=== PATIENT | male | born 1960 | race Caucasian/White ===

== ENCOUNTER 2019-04-03 13:31 | Inpatient (IN) | payer BC, OTHER ==
[2019-04-03] VITALS (7 sets, daily range): BP systolic 96–145; BP diastolic 75–98
[~2019-04-03] VITALS: Ht 193 cm; Wt 80.1 kg
[2019-04-03 13:50] LABS: BASOPHILS % (AUTO) 0.5 % (0-1); EOSINOPHILS # (AUTO) 0.1 X10'3 (0-0.9); HEMATOCRIT 43.8 % (42.0-52.0); HEMOGLOBIN 14.7 g/dl (14.0-17.9); LYMPHOCYTES # (AUTO) 1.5 X10'3 (1.1-4.8); LYMPHOCYTES % (AUTO) 19.7 % (21-51); MEAN CORPUSCULAR HEMOGLOBIN 30.6 PG (27.0-31.0); MEAN CORPUSCULAR HGB CONC 33.6 g/dL (33.0-36.5); MEAN CORPUSCULAR VOLUME 91.2 FL (78-98); MONOCYTES # (AUTO) 0.5 X10'3 (0-0.9); MONOCYTES % (AUTO) 6.6 % (2-12); NEUTROPHILS # (AUTO) 5.5 X10'3 (1.8-7.7); NEUTROPHILS % (AUTO) 72.2 % (42-75); PLATELET COUNT 236 X10'3 (140-440); RED CELL DISTRIBUTION WIDTH 13.6 % (11.5-14.5); WHITE BLOOD COUNT 7.7 X10'3 (4.5-11.0)
[2019-04-03 13:58] LABS: PARTIAL THROMBOPLASTIN TIME 25 SECONDS (22-32)
[2019-04-03 14:04] LABS: ALANINE AMINOTRANSFERASE 96 U/L (12-78); ALBUMIN 3.4 G/DL (3.4-5.0); ALBUMIN/GLOBULIN RATIO 0.9 (1.1-1.5); ALKALINE PHOSPHATASE 92 IU/L (46-116); ANION GAP 11 (8-16); ASPARTATE AMINO TRANSFERASE 46 U/L (10-37); BILIRUBIN,TOTAL 0.9 MG/DL (0.1-1.0); BLOOD UREA NITROGEN 20 MG/DL (7-18); BUN/CREATININE RATIO 19.8 (5.4-32.0); CALCIUM 8.6 MG/DL (8.5-10.1); CHLORIDE 105 MMOL/L (99-107); CREATININE 1.01 MG/DL (0.60-1.10); GLUCOSE 118 MG/DL (70-104); POTASSIUM 4.8 MMOL/L (3.5-5.1); SODIUM 141 MMOL/L (135-145); TOTAL PROTEIN 7.4 G/DL (6.4-8.2); eGFR 75 ML/MIN
[2019-04-03] MEDS ORDERED: diltiazem 5mg/ml 5ml inj. IV ONE ×2 (14:05→14:35)
[2019-04-03 14:16] LABS: D-DIMER 2.52 MG/L FEU (0-0.50)
[2019-04-03] MEDS ORDERED: diltiazem-NS 100mg/100ml 100 ML IV SCH ×2 (14:50→15:50)
[2019-04-03] MEDS ORDERED: iohexol 350MG/ML 100ml bottle IV ONE (15:19)
[2019-04-03] MEDS ORDERED: HYDROcodone/acetaminophen 10/325mg tab PO PRN (16:20)
[2019-04-03] MEDS ORDERED: HYDROcodone/acetaminophen 5mg/325mg tablet PO PRN (16:20)
[2019-04-03] MEDS ORDERED: ondansetron/PF 4mg/2ml inj IV PRN (16:20)
[2019-04-03] MEDS ORDERED: morphine 2 MG/ML inj. syringe IV PRN ×2 (16:20)
[2019-04-03] MEDS ORDERED: acetaminophen 325mg tablet PO PRN (16:20)
[2019-04-03] MEDS ORDERED: magnesium hydroxide 30ml (MOM) UD suspension PO PRN (16:20)
[2019-04-03] MEDS ORDERED: mag hydrox/Alum hydrox/simeth 30ml oral suspension PO PRN (16:20)
--- NOTE | 2019-04-03 16:55 | NUR ---
Received report from ROM Lopez. Awaiting patient arrival to PCU 3021.
[2019-04-03] MEDS ORDERED: SPIR25TA5 PO (17:41)
[2019-04-03] MEDS ORDERED: FURO40TA4 PO (17:41)
--- NOTE | 2019-04-03 17:55 | NUR ---
Patient arrived to PCU 3021. Ambulated to hospital bed from [facility] with minimal assistance. Patient oriented to room and to call light. Cardizem gtt @ 5 mL/hour. Vital signs: T: 97.5, HR 123, RR 22, O2 96% on room air, BP 122/98. Pain 2/10. All immediate needs met at this time. Will continue to monitor.
[2019-04-03] MEDS ORDERED: digoxin 250mcg/ml 2ml ampule IV ONE (18:40)
--- NOTE | 2019-04-03 18:49 | NUR ---
Patient in room PCU 3021. I have received report from Nakia CUETO and had the opportunity to ask questions and assume patient care.
--- NOTE | 2019-04-03 18:49 | NUR ---
Problems reprioritized. Patient report given, questions answered & plan of care reviewed with Deanne CUETO. Patient stable at transfer of care.
--- NOTE | 2019-04-03 19:40 | NUR ---
Patient received 500mcg IV push Digoxin and Cardizem gtt was stopped at this time per Dr. Bosch. HR is still high in the 130's-140's but MD did not want his blood pressure to drop too low. Although blood pressure is stable at this time. Will continue to monitor.
[2019-04-03] MEDS: furosemide 20 MG/2 ML vial IV SCH (20:27)
[2019-04-04] VITALS (18 sets, daily range): BP systolic 89–137; BP diastolic 60–99
[2019-04-04 01:39] LABS: BASOPHILS # (AUTO) 0.1 X10'3 (0-0.2); BASOPHILS % (AUTO) 0.8 % (0-1); EOSINOPHILS # (AUTO) 0.1 X10'3 (0-0.9); EOSINOPHILS % (AUTO) 1.4 % (0-6); HEMATOCRIT 41.5 % (42.0-52.0); HEMOGLOBIN 13.8 g/dl (14.0-17.9); LYMPHOCYTES # (AUTO) 1.7 X10'3 (1.1-4.8); LYMPHOCYTES % (AUTO) 22.6 % (21-51); MEAN CORPUSCULAR HEMOGLOBIN 30.1 PG (27.0-31.0); MEAN CORPUSCULAR HGB CONC 33.4 g/dL (33.0-36.5); MEAN CORPUSCULAR VOLUME 90.1 FL (78-98); MEAN PLATELET VOLUME 7.6 FL (7.4-10.4); MONOCYTES # (AUTO) 0.6 X10'3 (0-0.9); MONOCYTES % (AUTO) 7.7 % (2-12); NEUTROPHILS # (AUTO) 5.1 X10'3 (1.8-7.7); NEUTROPHILS % (AUTO) 67.5 % (42-75); PLATELET COUNT 204 X10'3 (140-440); RED CELL DISTRIBUTION WIDTH 13.4 % (11.5-14.5); WHITE BLOOD COUNT 7.5 X10'3 (4.5-11.0)
[2019-04-04 01:58] LABS: ALBUMIN 2.9 G/DL (3.4-5.0); ANION GAP 10 (8-16); BLOOD UREA NITROGEN 17 MG/DL (7-18); BUN/CREATININE RATIO 21.5 (5.4-32.0); CALCIUM 8.1 MG/DL (8.5-10.1); CHLORIDE 106 MMOL/L (99-107); CREATININE 0.79 MG/DL (0.60-1.10); GLUCOSE 98 MG/DL (70-104); POTASSIUM 3.7 MMOL/L (3.5-5.1); SODIUM 140 MMOL/L (135-145); TOTAL CARBON DIOXIDE 24.1 MMOL/L (24-32); eGFR > 90 ML/MIN
--- NOTE | 2019-04-04 04:47 | NUR ---
Patient's up to use the bathroom and HR back up into the 140's-150's, still A-fib. It stayed up once he got back into bed so Dr. Blair notified. Received order to start patient back on the Cardizem drip at 2.5mg/hour. BP currently 114/92. Will continue to monitor.
[2019-04-04] MEDS: diltiazem-NS 100mg/100ml 100 ML IV SCH (05:14)
--- NOTE | 2019-04-04 06:20 | NUR ---
Patient in room PCU 3021. I have received report from Deanne CUETO and had the opportunity to ask questions and assume patient care.
--- NOTE | 2019-04-04 06:33 | NUR ---
Problems reprioritized. Patient report given, questions answered & plan of care reviewed with Casey CUETO and Yvonne CUETO.
--- NOTE | 2019-04-04 06:51 | NUR ---
Patient in room PCU 3021. I have received report from Deanne and had the opportunity to ask questions and assume patient care.
[2019-04-04] MEDS: furosemide 20 MG/2 ML vial IV SCH ×2 (07:47→20:58)
[2019-04-04 17:28] LABS: MAGNESIUM 1.9 MG/DL (1.5-2.4)
[2019-04-04 17:29] LABS: CHOL/HDL RATIO 3.7 (0.00-4.99); CHOLESTEROL 96 MG/DL (0-200); HDL CHOLESTEROL 26 MG/DL (35-60); LDL CHOLESTEROL 68 MG/DL (50-100); TRIGLYCERIDES 44 MG/DL (20-135)
--- NOTE | 2019-04-04 18:10 | NUR ---
Problems reprioritized. Patient report given, questions answered & plan of care reviewed with Daisy.
--- NOTE | 2019-04-04 18:20 | NUR ---
Problems reprioritized. Patient report given, questions answered & plan of care reviewed with Demi CUETO.
--- NOTE | 2019-04-04 18:37 | NUR ---
I have reviewed Radha CUETO, orientee, charting and I agree with it.
--- NOTE | 2019-04-04 18:43 | NUR ---
Patient in room PCU 3021. I have received report from ROM Russell and Casey RN and had the opportunity to ask questions and assume patient care. Patient awake for beside report and on room air. Cardizem drip infusing at 2.5 mL/hr per provider order. Stable at this time. Will continue to monitor closely.
[2019-04-04] MEDS: carVEDilol 3.125mg tablet PO SCH (20:58)
[2019-04-05] VITALS (13 sets, daily range): BP systolic 93–115; BP diastolic 61–96
--- NOTE | 2019-04-05 00:40 | NUR ---
Patients heart rate sustained in 130's. Dr. Blair notified. No new orders at this time.
[2019-04-05 05:52] LABS: BASOPHILS % (AUTO) 0.5 % (0-1); EOSINOPHILS # (AUTO) 0.2 X10'3 (0-0.9); EOSINOPHILS % (AUTO) 2.5 % (0-6); HEMATOCRIT 42.2 % (42.0-52.0); HEMOGLOBIN 14.4 g/dl (14.0-17.9); LYMPHOCYTES # (AUTO) 1.9 X10'3 (1.1-4.8); LYMPHOCYTES % (AUTO) 27.2 % (21-51); MEAN CORPUSCULAR HEMOGLOBIN 30.3 PG (27.0-31.0); MEAN PLATELET VOLUME 7.7 FL (7.4-10.4); MONOCYTES # (AUTO) 0.5 X10'3 (0-0.9); MONOCYTES % (AUTO) 7.7 % (2-12); NEUTROPHILS # (AUTO) 4.2 X10'3 (1.8-7.7); NEUTROPHILS % (AUTO) 62.1 % (42-75); PLATELET COUNT 221 X10'3 (140-440); RED BLOOD COUNT 4.74 X10'6 (4.70-6.10); WHITE BLOOD COUNT 6.8 X10'3 (4.5-11.0)
[2019-04-05 06:14] LABS: ALBUMIN 2.7 G/DL (3.4-5.0); ANION GAP 10 (8-16); BLOOD UREA NITROGEN 17 MG/DL (7-18); BUN/CREATININE RATIO 23.3 (5.4-32.0); CALCIUM 7.9 MG/DL (8.5-10.1); CHLORIDE 106 MMOL/L (99-107); CREATININE 0.73 MG/DL (0.60-1.10); GLUCOSE 86 MG/DL (70-104); SODIUM 139 MMOL/L (135-145); TOTAL CARBON DIOXIDE 22.6 MMOL/L (24-32); eGFR > 90 ML/MIN
[2019-04-05 06:15] LABS: POTASSIUM 4.3 MMOL/L (3.5-5.1)
--- NOTE | 2019-04-05 06:32 | NUR ---
Problems reprioritized. Patient report given, questions answered & plan of care reviewed with ROM Epperson and ROM Cabrera.
[2019-04-05] MEDS: spironolactone 25 MG tablet PO SCH (07:14)
[2019-04-05] MEDS: carVEDilol 3.125mg tablet PO SCH ×2 (07:15→20:11)
[2019-04-05] MEDS: lisinopril 10 MG tablet PO SCH (07:15)
[2019-04-05] MEDS: furosemide 20 MG/2 ML vial IV SCH ×2 (07:15→20:22)
[2019-04-05] MEDS: diltiazem-NS 100mg/100ml 100 ML IV SCH (07:15)
[2019-04-05] MEDS ORDERED: carVEDilol 3.125mg tablet PO ONE (08:55)
[2019-04-05] MEDS: aspirin 81mg tablet.DR PO SCH (09:05)
--- NOTE | 2019-04-05 18:00 | NUR ---
Patient in room PCU 3021. I have received report from ROM Crook and had the opportunity to ask questions and assume patient care.
--- NOTE | 2019-04-05 18:54 | NUR ---
Problems reprioritized. Patient report given, questions answered & plan of care reviewed with Zenobia CUETO.
[2019-04-05] MEDS ORDERED: digoxin 250mcg/ml 2ml ampule IV ONE (19:40)
[2019-04-05] MEDS: digoxin 125mcg (0.125mg) tablet PO SCH (20:13)
[2019-04-06] VITALS (7 sets, daily range): BP systolic 103–122; BP diastolic 72–90
[2019-04-06] MEDS: digoxin 125mcg (0.125mg) tablet PO SCH ×2 (03:10→08:49)
[2019-04-06 05:21] LABS: BASOPHILS # (AUTO) 0.1 X10'3 (0-0.2); BASOPHILS % (AUTO) 0.7 % (0-1); EOSINOPHILS # (AUTO) 0.2 X10'3 (0-0.9); EOSINOPHILS % (AUTO) 2.5 % (0-6); HEMATOCRIT 43.7 % (42.0-52.0); HEMOGLOBIN 14.8 g/dl (14.0-17.9); LYMPHOCYTES # (AUTO) 1.6 X10'3 (1.1-4.8); LYMPHOCYTES % (AUTO) 18.5 % (21-51); MEAN CORPUSCULAR HEMOGLOBIN 30.1 PG (27.0-31.0); MEAN CORPUSCULAR HGB CONC 33.8 g/dL (33.0-36.5); MEAN CORPUSCULAR VOLUME 89.1 FL (78-98); MEAN PLATELET VOLUME 7.4 FL (7.4-10.4); MONOCYTES # (AUTO) 0.5 X10'3 (0-0.9); NEUTROPHILS # (AUTO) 6.2 X10'3 (1.8-7.7); NEUTROPHILS % (AUTO) 72.3 % (42-75); PLATELET COUNT 253 X10'3 (140-440); RED CELL DISTRIBUTION WIDTH 13.2 % (11.5-14.5); WHITE BLOOD COUNT 8.5 X10'3 (4.5-11.0)
[2019-04-06 05:40] LABS: ALBUMIN 2.8 G/DL (3.4-5.0); ANION GAP 7 (8-16); BLOOD UREA NITROGEN 16 MG/DL (7-18); BUN/CREATININE RATIO 18.6 (5.4-32.0); CALCIUM 9.2 MG/DL (8.5-10.1); CHLORIDE 105 MMOL/L (99-107); CREATININE 0.86 MG/DL (0.60-1.10); GLUCOSE 92 MG/DL (70-104); POTASSIUM 4.4 MMOL/L (3.5-5.1); SODIUM 140 MMOL/L (135-145); TOTAL CARBON DIOXIDE 28.4 MMOL/L (24-32); eGFR > 90 ML/MIN
--- NOTE | 2019-04-06 06:00 | NUR ---
Preceptee documentation: I have reviewed and agree with all interventions, assessments performed and documented by ROM Lundberg.
--- NOTE | 2019-04-06 06:11 | NUR ---
Problems reprioritized. Patient report given, questions answered & plan of care reviewed with ROM Crook.
[2019-04-06] MEDS: spironolactone 25 MG tablet PO SCH (08:48)
[2019-04-06] MEDS: furosemide 20 MG/2 ML vial IV SCH (08:48)
[2019-04-06] MEDS: aspirin 81mg tablet.DR PO SCH (08:48)
[2019-04-06] MEDS: lisinopril 10 MG tablet PO SCH (08:49)
[2019-04-06] MEDS: carVEDilol 3.125mg tablet PO SCH (08:50)
--- NOTE | 2019-04-06 10:04 | NUR ---
Received orders from Dr. Soto to decrease diltiazam to 1mls/hr
[2019-04-06] MEDS ORDERED: diltiazem-NS 100mg/100ml 100 ML IV SCH (10:05)
[2019-04-06] MEDS ORDERED: FURO-150 PO (10:33)
[2019-04-06] MEDS ORDERED: ASPI-1071 PO (10:33)
[2019-04-06] MEDS ORDERED: DIGO125T PO (10:33)
[2019-04-06] MEDS ORDERED: COR3.125T PO (10:33)
[2019-04-06] MEDS ORDERED: LISI10TA4 PO (10:33)
--- NOTE | 2019-04-06 11:18 | NUR ---
PAGER ID: [phone] MESSAGE: [phone] Howie Lemus: Update on VS BP 106/54, HR 102 tolerating the titration well, is it ok to stop cardizem drip? thanks germain
--- NOTE | 2019-04-06 13:22 | NUR ---
Pt is stable for discharge per md orders, discharge instructions reviewed w/ pt and daughter, all questions answered, new medication prescriptions called in to [facility] per pt request, Mobile monitor 2 returned, PIV dc'ed and clean dry dressing in place, pt wheeled down to lobby with hospital staff, pt discharges at 1310 w/ daughter in private vehicle, all needs belongings w/ pt at time of discharge.
== END 2019-04-06 13:15 | disposition home or self-care (01) | DRG 308 ==
LOC: ER 13:31 → ED HOLD 17:30 → PCU 3S 17:50
PROVIDERS: ADMIT Internal Medicine; ATTEND Family Medicine
PROC: B32T1ZZ Computerized Tomography (CT Scan) of Left Pulmonary Artery using Low Osmolar Contrast (ICD-10-PCS; principal; 2019-04-03)
PROC: B3201ZZ Computerized Tomography (CT Scan) of Thoracic Aorta using Low Osmolar Contrast (ICD-10-PCS; 2019-04-03)
PROC: B32S1ZZ Computerized Tomography (CT Scan) of Right Pulmonary Artery using Low Osmolar Contrast (ICD-10-PCS; 2019-04-03)
DX: I48.0 Paroxysmal atrial fibrillation (principal); I50.33 Acute on chronic diastolic (congestive) heart failure; I11.0 Hypertensive heart disease with heart failure; R00.0 Tachycardia, unspecified; Z79.899 Other long term (current) drug therapy
CPT/HCPCS: 36415; 71045; 71275; 80048; 80053; 80061; 80162; 83735; 83880; 84100; 84439; 84443; 84484; 85025; 85379; 85610; 85730; 87081; 93005; 93306; 96365; 96376; 99291; G0378; J1160; J1940; J3490; Q9967

== ENCOUNTER 2022-09-13 15:43 | Observation (INO) | payer BC, OTHER ==
[~2022-09-13] VITALS: Ht 180.3 cm; Wt 81.8 kg
[~2022-09-13 15:43] MED LIST: ASPI-1071 PO; COR3.125T PO; LISI10TA27 PO; SPIR25TA5 PO
[2022-09-13 16:10] LABS: BASOPHILS % (AUTO) 0.5 % (0-1); EOSINOPHILS # (AUTO) 0.3 X10'3 (0-0.9); EOSINOPHILS % (AUTO) 3.2 % (0-6); HEMATOCRIT 47.3 % (42.0-52.0); HEMOGLOBIN 15.5 g/dl (14.0-17.9); LYMPHOCYTES # (AUTO) 1.7 X10'3 (1.1-4.8); LYMPHOCYTES % (AUTO) 18.6 % (21-51); MEAN CORPUSCULAR HGB CONC 32.7 g/dL (33.0-36.5); MEAN PLATELET VOLUME 7.3 FL (7.4-10.4); MONOCYTES # (AUTO) 0.6 X10'3 (0-0.9); MONOCYTES % (AUTO) 6.9 % (2-12); NEUTROPHILS # (AUTO) 6.4 X10'3 (1.8-7.7); NEUTROPHILS % (AUTO) 70.8 % (42-75); PLATELET COUNT 198 X10'3 (140-440); RED BLOOD COUNT 5.14 X10'6 (4.70-6.10); RED CELL DISTRIBUTION WIDTH 13.4 % (11.5-14.5)
[2022-09-13 16:45] LABS: ANION GAP 8 (8-16); BILIRUBIN,TOTAL 0.7 MG/DL (0.1-1.0); BLOOD UREA NITROGEN 20 MG/DL (7-18); BUN/CREATININE RATIO 22.7 (5.4-32.0); CALCIUM 9.2 MG/DL (8.5-10.1); CHLORIDE 104 MMOL/L (99-107); CREATININE 0.88 MG/DL (0.60-1.10); GLUCOSE 102 MG/DL (70-104); POTASSIUM 4.7 MMOL/L (3.5-5.1); SODIUM 137 MMOL/L (135-145); TOTAL CARBON DIOXIDE 24.8 MMOL/L (24-32); eGFR 87 ML/MIN
[2022-09-13 16:46] LABS: ALANINE AMINOTRANSFERASE 48 U/L (12-78); ALBUMIN 3.8 G/DL (3.4-5.0); ALKALINE PHOSPHATASE 70 IU/L (46-116); ASPARTATE AMINO TRANSFERASE 41 U/L (10-37); TOTAL PROTEIN 7.5 G/DL (6.4-8.2)
[2022-09-13 16:53] LABS: MAGNESIUM 1.9 MG/DL (1.5-2.4)
[2022-09-13] MEDS ORDERED: metoprolol tartrate 1mg/ml inj IV ONE (17:30)
[2022-09-13] MEDS ORDERED: DIGO125T2 PO (17:40)
[2022-09-13] MEDS ORDERED: CARV6.253 PO (17:40)
--- NOTE | 2022-09-13 19:50 | NUR ---
Patient reassessed, no distress noted. Patient HR noted 100, BP 125/92. Patient given blanket, denies other needs at this time. Patient resting in stretcher.
--- NOTE | 2022-09-13 21:54 | NUR ---
Patient placed in hospital bed. Patient attempting to rest. Still awaiting hospitalist orders. Patient remains AFIB, rate controlled at this time with rate in 80 to 110 range. Patient denies chest pain.
[2022-09-13] MEDS ORDERED: potassium Cl 20 mEq SR tablet PO PRN ×2 (22:05)
[2022-09-13] MEDS ORDERED: potassium Cl 40MEQ/1/2NS 520ml 520 ML IV PRN (22:05)
[2022-09-13] MEDS ORDERED: magnesium 4gm in 100ml NS 100 ML IV PRN (22:05)
[2022-09-13] MEDS ORDERED: ondansetron/PF 4mg/2ml inj IV PRN (22:05)
[2022-09-13] MEDS ORDERED: acetaminophen 325mg tablet PO PRN (22:05)
[2022-09-13] MEDS ORDERED: magnesium Cl slow-release 64mg tablet PO PRN (22:05)
[2022-09-13] MEDS ORDERED: digoxin 250mcg (0.25mg) tablet PO ONE (22:05)
[2022-09-13] MEDS: furosemide 20MG tablet PO SCH (22:33)
--- NOTE | 2022-09-14 01:20 | NUR ---
RECIEVED REPORT FROM ER NURSE. ALL QUESTIONS HAVE BEEN ANSWERED. AWAITING PT ARRIVAL TO 3014A.
--- NOTE | 2022-09-14 01:22 | NUR ---
report called to PCU, who kindly accepts report at this time. Patient cleared for transport to receiving unit.
--- NOTE | 2022-09-14 01:40 | NUR ---
PATIENT ARRIVED TO FLOOR VIA WHEEL CHAIR. PATIENT IS ALERT AND EXCITED TO BE IN A ROOM UPSTAIRS. HE DENIES ANY PAIN AT THIS TIME AND IS EAGER TO REST. PT ORIENTATED TO ROOM, BED, BATHROOM, AND CALL LIGHT. PHYSICAL ASSESSMENT COMPLETED.
[2022-09-14 07:00] VITALS: BP 102/71
[2022-09-14 07:04] LABS: BASOPHILS # (AUTO) 0.1 X10'3 (0-0.2); EOSINOPHILS # (AUTO) 0.4 X10'3 (0-0.9); EOSINOPHILS % (AUTO) 6.9 % (0-6); HEMATOCRIT 45.5 % (42.0-52.0); HEMOGLOBIN 15.2 g/dl (14.0-17.9); LYMPHOCYTES # (AUTO) 1.6 X10'3 (1.1-4.8); LYMPHOCYTES % (AUTO) 30.4 % (21-51); MEAN CORPUSCULAR HEMOGLOBIN 30.4 PG (27.0-31.0); MEAN CORPUSCULAR HGB CONC 33.5 g/dL (33.0-36.5); MEAN CORPUSCULAR VOLUME 90.7 FL (78-98); MEAN PLATELET VOLUME 7.3 FL (7.4-10.4); MONOCYTES # (AUTO) 0.6 X10'3 (0-0.9); MONOCYTES % (AUTO) 10.6 % (2-12); NEUTROPHILS # (AUTO) 2.7 X10'3 (1.8-7.7); NEUTROPHILS % (AUTO) 51.1 % (42-75); PLATELET COUNT 173 X10'3 (140-440); RED BLOOD COUNT 5.01 X10'6 (4.70-6.10); RED CELL DISTRIBUTION WIDTH 13.3 % (11.5-14.5); WHITE BLOOD COUNT 5.3 X10'3 (4.5-11.0)
[2022-09-14 07:35] LABS: ALBUMIN 3.5 G/DL (3.4-5.0); ANION GAP 10 (8-16); BLOOD UREA NITROGEN 19 MG/DL (7-18); BUN/CREATININE RATIO 27.1 (5.4-32.0); CALCIUM 9.3 MG/DL (8.5-10.1); CHLORIDE 105 MMOL/L (99-107); GLUCOSE 92 MG/DL (70-104); MAGNESIUM 1.7 MG/DL (1.5-2.4); SODIUM 141 MMOL/L (135-145); TOTAL CARBON DIOXIDE 25.8 MMOL/L (24-32); eGFR > 90 ML/MIN
[2022-09-14] MEDS: K and/or MAG REPLACEMENT MC SCH ×2 (08:00→20:00)
[2022-09-14] MEDS: carvedilol 6.25mg tablet PO SCH ×2 (08:18→20:11)
[2022-09-14] MEDS: apixaban 5mg tablet PO SCH ×2 (08:18→20:11)
[2022-09-14] MEDS: furosemide 20MG tablet PO SCH (08:18)
[2022-09-14 11:00] VITALS: BP 112/82
--- NOTE | 2022-09-14 13:34 | NUR ---
PAGER ID: [phone] MESSAGE: [phone], Allan Denise. Pts HR is up in the 150's, it has happened a few times in the last 30 mins. There is no PRN ordered for him. [facility] [id number].
--- NOTE | 2022-09-14 16:43 | NUR ---
I AGREE WITH SIRENA, CLIENT ACCOUNT MANAGER ASSESSMENT.
[2022-09-14 18:00] VITALS: BP 133/90
[2022-09-14 22:00] VITALS: BP 113/84
[2022-09-15 02:00] VITALS: BP 96/66
[2022-09-15 06:21] LABS: BASOPHILS # (AUTO) 0.1 X10'3 (0-0.2); BASOPHILS % (AUTO) 0.8 % (0-1); EOSINOPHILS # (AUTO) 0.3 X10'3 (0-0.9); EOSINOPHILS % (AUTO) 4.9 % (0-6); HEMOGLOBIN 16.3 g/dl (14.0-17.9); LYMPHOCYTES # (AUTO) 2.2 X10'3 (1.1-4.8); LYMPHOCYTES % (AUTO) 32.8 % (21-51); MEAN CORPUSCULAR HEMOGLOBIN 30.8 PG (27.0-31.0); MEAN CORPUSCULAR HGB CONC 33.9 g/dL (33.0-36.5); MEAN CORPUSCULAR VOLUME 90.8 FL (78-98); MONOCYTES # (AUTO) 0.8 X10'3 (0-0.9); MONOCYTES % (AUTO) 11.3 % (2-12); NEUTROPHILS # (AUTO) 3.4 X10'3 (1.8-7.7); NEUTROPHILS % (AUTO) 50.2 % (42-75); PLATELET COUNT 182 X10'3 (140-440); RED BLOOD COUNT 5.29 X10'6 (4.70-6.10); RED CELL DISTRIBUTION WIDTH 13.6 % (11.5-14.5); WHITE BLOOD COUNT 6.8 X10'3 (4.5-11.0)
[2022-09-15 06:29] LABS: ALBUMIN 3.5 G/DL (3.4-5.0); ANION GAP 9 (8-16); BLOOD UREA NITROGEN 15 MG/DL (7-18); BUN/CREATININE RATIO 23.1 (5.4-32.0); CALCIUM 9.4 MG/DL (8.5-10.1); CHLORIDE 105 MMOL/L (99-107); CREATININE 0.65 MG/DL (0.60-1.10); GLUCOSE 103 MG/DL (70-104); MAGNESIUM 1.8 MG/DL (1.5-2.4); POTASSIUM 3.9 MMOL/L (3.5-5.1); SODIUM 138 MMOL/L (135-145); TOTAL CARBON DIOXIDE 24.3 MMOL/L (24-32); eGFR > 90 ML/MIN
--- NOTE | 2022-09-15 06:42 | NUR ---
Report given to jillian CUETO
[2022-09-15 07:00] VITALS: BP 106/77
[2022-09-15] MEDS: apixaban 5mg tablet PO SCH (08:40)
[2022-09-15] MEDS: carvedilol 6.25mg tablet PO SCH (08:40)
[2022-09-15] MEDS: furosemide 20MG tablet PO SCH (08:40)
[2022-09-15] MEDS ORDERED: APIX5TAB3 PO (10:05)
[2022-09-15] MEDS ORDERED: METO-395 PO (10:48)
[2022-09-15 11:00] VITALS: BP 122/78
[2022-09-15] MEDS ORDERED: LISI5TAB22 PO (11:44)
== END 2022-09-15 12:00 | disposition home or self-care (01) ==
LOC: ER 15:44 → PCU 3S 22:05 → ED HOLD 22:05 → UNDOADMOB 22:05 → EDBEDREQ 09-14 00:47 → ED HOLD 09-14 01:40 → PCU 3S 09-14 01:40
PROVIDERS: ADMIT Internal Medicine; ATTEND Internal Medicine
DX: I48.20 Chronic atrial fibrillation, unspecified (principal); I50.23 Acute on chronic systolic (congestive) heart failure; Z79.01 Long term (current) use of anticoagulants; Z91.14 Patient's other noncompliance with medication regimen; Z79.899 Other long term (current) drug therapy
CPT/HCPCS: 36415; 80048; 80053; 83735; 83880; 84484; 85025; 93005; 93306; 93880; 96374; 99284; G0378; J3490; J7030; J7040